=== PATIENT | female | born 1960 | race Asian ===

== ENCOUNTER → 2016-11-24 | Outpatient (CLI) | payer OTHER ==
[~2016-11-24] MED LIST: GADOBUTROL 10 ML VIAL IVP ONE
== END ==
LOC: FIMAGING 08:48
PROVIDERS: ATTEND Radiology Diagnostic Radiology
DX: Z95.828 Presence of other vascular implants and grafts (principal); Z86.73 Personal history of transient ischemic attack (TIA), and cerebral infarction without residual deficits
CPT/HCPCS: A9585

== ENCOUNTER → 2017-05-07 | Outpatient (CLI) | payer OTHER ==
--- NOTE | 2017-05-08 08:45 | CPEEG ---
[f rep st] ELECTROENCEPHALOGRAM EEG DATE OF STUDY: 05/07/2017 INTERPRETATION: This 4-hour video EEG recording contains a mild degree of focal slowing over the left temporal head region. These findings are consistent with a mild focal disturbance of cerebral function in these regions. There were no potentially epileptogenic abnormalities present during the awake or sleep recordings. The patient did not have any clinical events during the monitoring session. REPORT: This 4-hour video EEG contains 10 Hz alpha activity over the posterior head regions. There was a mild degree of focal slowing over the left temporal head region, maximal left posterior temporal. This slowing was composed of intermittent polymorphic theta frequency activity. There was no abnormal epileptiform activation at rest, during photic stimulation, or hyperventilation. The patient became drowsy and fell into sustained sleep during the study. There was no abnormal activation during drowsiness, sleep, or during times of arousal. The patient did not have any clinical events during the video EEG monitoring session. /[id number]/MODL MTDD
== END ==
LOC: FCPNEURO 06:35
PROVIDERS: ATTEND Psychiatry & Neurology Neurology
DX: I72.9 Aneurysm of unspecified site (principal); I63.9 Cerebral infarction, unspecified; G40.109 Localization-related (focal) (partial) symptomatic epilepsy and epileptic syndromes with simple partial seizures, not intractable, without status epilepticus

== ENCOUNTER → 2017-09-11 | Outpatient (CLI) | payer OTHER | LOC: FIMAGING 08:43 | PROVIDERS: ATTEND Family Medicine | DX: Z12.31 Encounter for screening mammogram for malignant neoplasm of breast (principal) ==